=== PATIENT | female | born 2000 | race Caucasian/White ===

== ENCOUNTER 2023-10-26 14:06 | Emergency (ER) | payer OTHER ==
[2023-10-26 14:18] VITALS: TEMP 97.8
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
[2023-10-26] MEDS: KETOROLAC 15 MG/ML 1 ML VIAL IVP STA (16:07)
[2023-10-26] MEDS: ORPHENADRINE 30 MG/ML 2 ML VIAL IVP STA (16:08)
[2023-10-26] MEDS: LIDOCAINE 4% PATCH TOPICAL ONE (16:09)
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
[2023-10-26 18:06] VITALS: BP 96/70; PULSE 78; RESP 16
== END 2023-10-26 18:05 | disposition home or self-care (01) ==
LOC: EC 14:06
DX: M54.50 Low back pain, unspecified (principal); F17.200 Nicotine dependence, unspecified, uncomplicated; V49.40XA Driver injured in collision with unspecified motor vehicles in traffic accident, initial encounter; Y92.410 Unspecified street and highway as the place of occurrence of the external cause
CPT/HCPCS: 81025; 72100; 71046; 72125; 70450; 99285; 96374; 96375; J2360; J1885